=== PATIENT | male | born 1990 | race American Indian/Alaskan Native ===

== ENCOUNTER 2021-02-23 09:58 | Emergency (ER) | payer SELFPAY ==
[2021-02-23 10:23] VITALS: BP 142/67
[2021-02-23] MEDS ORDERED: KETOROLAC 60 MG/2 ML INJ IM SCH (10:30)
--- NOTE | 2021-02-23 10:35 | Emergency Department Report ---
ED General Adult HPI - General Stated complaint: BACK PAIN, LEG PAIN, SPINAL CORD PAIN Time Seen by Provider: 02/23/21 10:22 - History of Present Illness Initial comments: 30-year-old -Prydeinig male patient presents with complaints of recurrent low back pain radiating down his left leg for 6 months. Patient states his recent flare started yesterday. He rates his current pain as a 10/10 in severity and states it worsens with sitting and standing straight. Patient reports he saw a doctor about 1 week ago for the pain and is unsure of what he was diagnosed with. Patient states he was referred to physical therapy, however he moved to [place] and is not able to see that physical therapist. No loss of bladder/bowel control, numbness/weakness in his legs, or difficulty with ambulation per patient. He denies any other past medical history. - Related Data Previous Rx's Medication Instructions Recorded Last Taken Type Naproxen 500 mg PO BID PRN #20 tablet 02/23/21 Unknown Rx Prednisone [predniSONE 10 mg 10 mg PO .TAPER #1 tab.ds.pk 02/23/21 Unknown Rx (6-Day Pack, 21 Tabs)] methocarbamoL [Methocarbamol] 750 - 1,500 mg PO TID PRN #30 02/23/21 Unknown Rx tablet Allergies Allergy/AdvReac Type Severity Reaction Status Date / Time divalproex sodium AdvReac Hives Verified 02/23/21 10:24 [From Depakote] morphine AdvReac Hives Verified 02/23/21 10:24 shellfish derived AdvReac Hives Verified 02/23/21 10:24 ED Review of Systems ROS: Stated complaint: BACK PAIN, LEG PAIN, SPINAL CORD PAIN Other details as noted in HPI Constitutional: denies: chills, diaphoresis, fever, malaise Cardiovascular: denies: chest pain ED Past Medical Hx - Medications Home Medications: Home Medications Medication Instructions Recorded Confirmed Last Taken Type Naproxen 500 mg PO BID PRN #20 tablet 02/23/21 Unknown Rx Prednisone [predniSONE 10 mg 10 mg PO .TAPER #1 tab.ds.pk 02/23/21 Unknown Rx (6-Day Pack, 21 Tabs)] methocarbamoL [Methocarbamol] 750 - 1,500 mg PO TID PRN #30 02/23/21 Unknown Rx tablet ED Course Vital Signs 02/23/21 10:20 Temperature 98.6 F Pulse Rate 96 H Respiratory 20 Rate Blood Pressure 142/67 O2 Sat by Pulse 99 Oximetry ED Medical Decision Making - Medical Decision Making 30-year-old -Prydeinig male patient presents with complaints of recurrent low back pain radiating down his left leg for 6 months. Patient states his recent flare started yesterday. He rates his current pain as a 10/10 in s everity and states it worsens with sitting and standing straight. Patient reports he saw a doctor about 1 week ago for the pain and is unsure of what he was diagnosed with. Patient states he was referred to physical therapy, however he moved to [place] and is not able to see that physical therapist. No loss of bladder/bowel control, numbness/weakness in his legs, or difficulty with ambulation per patient. He denies any other past medical history. Physical and history consistent with sciatica. Recommend follow-up with primary care and physical therapy. Discussed signs and symptoms that should prompt immediate return to emergency department in detail patient verbalizes understanding. He is well-appearing and stable for discharge home. Critical care attestation.: If time is entered above; I have spent that time in minutes in the direct care of this critically ill patient, excluding procedure time. ED Disposition Clinical Impression: Low back pain with left-sided sciatica Disposition: - TO HOME OR SELFCARE Is pt being admited?: No Condition: Stable Instructions: Sciatica Prescriptions: methocarbamoL [Methocarbamol] 750 - 1,500 mg PO TID PRN #30 tablet PRN Reason: muscle spasm/tightness Naproxen 500 mg PO BID PRN #20 tablet PRN Reason: pain Prednisone [predniSONE 10 mg (6-Day Pack, 21 Tabs)] 10 mg PO .TAPER #1 tab.ds.pk Referrals: [facility] [Provider Group] - 3-5 Days
[2021-02-23] MEDS ORDERED: dexAMETHasone 4 MG/ML VIAL IM SCH (11:00)
== END 2021-02-23 11:35 | disposition home or self-care (01) ==
LOC: ED 09:58
DX: M54.42 Lumbago with sciatica, left side (principal); Z79.899 Other long term (current) drug therapy; Z91.013 Allergy to seafood; Z88.8 Allergy status to other drugs, medicaments and biological substances
CPT/HCPCS: 99281; J1100; J1885